=== PATIENT | female | born 1965 | race Caucasian/White ===

== ENCOUNTER 2018-08-06 11:04 | Emergency (ER) | payer BC ==
--- NOTE | 2018-08-06 12:16 | ERPHSYRPT ---
- History of Present Illness Time Seen by Provider: 08/06/18 12:05 Historian: patient, family Exam Limitations: no limitations (or fever) Patient Subjective Stated Complaint: Pt states "I think I have the stomach bug. I cannot keep anything down and my stomach has been cramping on and off for the past 3 days." Triage Nursing Assessment: Pt alert and oriented X 3, skin pwd. PT ambulates with an upright steady gait, able to speak in clear full sentences. PT in no apparent respiratory distress. Physician History: The patient is a 53-year-old female with her complaining that she has a "stomach bug" for the past 3 days. She has not eaten for 3 or 4 days. She tries to drink she either gets cramping of her stomach, vomiting, or diarrhea. She denies fever or chills. She is lightheaded when she stands up. She has not been able to take her prescription medicines. Her past medical history significant for HTN, cholecystectomy, and hysterectomy. Timing/Duration: day(s) (4), gradual onset, worse Activities at Onset: none Quality: cramping Abdominal Pain Onset Location: epigastric Pain Radiation: no radiation Severity of Pain-Max: moderate Severity of Pain-Current: moderate Modifying Factors: Improves With: vomiting Associated Symptoms: diarrhea, nausea, vomiting Previous symptoms: no prior history Allergies/Adverse Reactions: levofloxacin [From Levaquin] Allergy (Mild, Verified 03/13/16 15:48) Stomach Pain Home Medications: Estradiol 1 mg [Estrace 1 mg] 0 mg PO DAILY 03/13/16 [History] Losartan Potassium 100 mg PO DAILY 03/13/16 [History] Nebivolol HCl [Bystolic] 10 mg PO HS 03/13/16 [History] Hx Tetanus, Diphtheria Vaccination/Date Given: Yes Hx Influenza Vaccination/Date Given: Yes Hx Pneumococcal Vaccination/Date Given: No Immunizations Up to Date: Yes - Review of Systems Constitutional: No Fever, No Chills Eyes: No Symptoms Ears, Nose, & Throat: No Symptoms Respiratory: No Cough, No Dyspnea Cardiac: No Chest Pain, No Edema, No Syncope Abdominal/Gastrointestinal: Abdominal Pain, Nausea, Vomiting, Diarrhea Genitourinary Symptoms: No Dysuria Musculoskeletal: No Back Pain, No Neck Pain Skin: No Rash Neurological: Dizziness Psychological: No Symptoms Endocrine: No Symptoms Hematologic/Lymphatic: No Symptoms Immunological/Allergic: No Symptoms All Other Systems: Reviewed and Negative - Past Medical History Pertinent Past Medical History: Yes Neurological History: No Pertinent History ENT History: No Pertinent History Cardiac History: Hypertension Respiratory History: No Pertinent History Endocrine Medical History: No Pertinent History Musculoskeletal History: No Pertinent History GI Medical History: Gallbladder Disease History: Other Psycho-Social History: No Pertinent History Female Reproductive Disorders: Abnormal Uterine Bleeding - Past Surgical History Past Surgical History: Yes Neuro Surgical History: No Pertinent History Cardiac: No Pertinent History Respiratory: No Pertinent History Gastrointestinal: Cholecystectomy Genitourinary: Other Musculoskeletal: No Pertinent History Female Surgical History: Hysterectomy Other Surgical History: kidney stone removed - Social History Smoking Status: Never smoker Exposure to second hand smoke: No Drug Use: none Patient Lives Alone: No - Female History Hx Last Menstrual Period: hysterectomy Hx Now: No - Nursing Vital Signs Nursing Vital Signs: Initial Vital Signs Temperature 97.7 F 08/06/18 11:10 Pulse Rate 102 H 08/06/18 11:10 Respiratory Rate 18 08/06/18 11:10 Blood Pressure 183/89 08/06/18 11:10 O2 Sat by Pulse Oximetry 99 08/06/18 11:10 Pain Scale Pain Intensity 5 - Physical Exam General Appearance: mild distress Eye Exam: PERRL/EOMI, eyes nml inspection Ears, Nose, Throat Exam: normal ENT inspection, pharynx normal, moist mucous membranes Neck Exam: normal inspection, non-tender, supple, full range of motion Respiratory Exam: normal breath sounds, lungs clear, No respiratory distress Cardiovascular Exam: regular rate/rhythm, normal heart sounds Gastrointestinal/Abdomen Exam: tenderness (epigastric) Pelvic Exam: not done Rectal Exam: not done Back Exam: normal inspection, normal range of motion, No CVA tenderness, No vertebral tenderness Extremity Exam: normal inspection, normal range of motion, pelvis stable Neurologic Exam: alert, oriented x 3, cooperative, normal mood/affect, nml cerebellar function, sensation nml, No motor deficits Skin Exam: normal color, warm, dry SpO2 Interpretation: normal SpO2: 99 Oxygen Delivery: Room Air - CT Exams Abdomen/Pelvis CT Interpretation: Tele-radiologist Report (per Dr Frausto), Other (distended small bowel loops, ileal bowel wall thickening; stranding; favoring enteritis) Ordered Tests: Active Orders 24 hr Category Date Time Status IV Insertion STAT Care 08/06/18 12:18 Active ABDOMEN AND PELVIS W/0 CONTRAS [CT] Stat Exams 08/06/18 12:18 Completed CBC W DIFF Stat Lab 08/06/18 12:15 Completed CMP Stat Lab 08/06/18 12:15 Received LIPASE Stat Lab 08/06/18 12:15 Received Lactic Acid Stat Lab 08/06/18 12:15 Completed Lactic Acid Stat Lab 08/06/18 15:06 Completed Medication Summary Discontinued Medications Generic Name Dose Route Start Last Admin Trade Name Deborah PRN Reason Stop Dose Admin Famotidine 20 mg 08/06/18 12:18 08/06/18 12:35 Pepcid 20 Mg Vial IV 08/06/18 12:19 20 mg STAT ONE Administration Famotidine Confirm 08/06/18 12:23 Pepcid 20 Mg Vial Administered 08/06/18 12:24 Dose 20 mg IV .STK-MED ONE Sodium Chloride 1,000 mls @ 999 mls/hr 08/06/18 12:18 08/06/18 13:42 Sodium Chloride 0.9% 1000 Ml IV 08/06/18 13:18 Infused .Q1H1M STA Infusion Sodium Chloride Confirm 08/06/18 12:23 Sodium Chloride 0.9% 1000 Ml Administered 08/06/18 12:24 Dose 1,000 mls @ ud .ROUTE .STK-MED ONE Sodium Chloride 1,000 mls @ 999 mls/hr 08/06/18 14:39 08/06/18 14:56 Sodium Chloride 0.9% 1000 Ml IV 08/06/18 15:39 999 mls/hr .Q1H1M STA Administration Sodium Chloride Confirm 08/06/18 14:56 Sodium Chloride 0.9% 1000 Ml Administered 08/06/18 14:57 Dose 1,000 mls @ ud .ROUTE .STK-MED ONE Promethazine HCl 25 mg 08/06/18 12:19 08/06/18 12:34 Phenergan 25 Mg Inj IV 08/06/18 12:20 25 mg STAT ONE Administration Promethazine HCl Confirm 08/06/18 12:23 Phenergan 25 Mg Inj Administered 08/06/18 12:24 Dose 25 mg .ROUTE .STK-MED ONE Lab/Rad Data: Laboratory Result Diagrams 08/06/18 12:15 Laboratory Results 08/06/18 08/06/18 08/06/18 Range/Units 15:06 12:15 12:15 WBC 13.1 H (4.0-10.5) K/mm3 RBC 5.30 (4.1-5.4) M/mm3 Hgb 16.4 H (12.0-16.0) gm/dl Hct 48.9 H (35-47) % MCV 92.3 (78-100) fl MCH 30.9 (26-32) pg MCHC 33.5 (32-36) g/dl RDW 12.9 (11.5-14.0) % Plt Count 389 (150-450) K/mm3 MPV 10.2 H (6-9.5) fl Gran % 81.0 H (36.0-66.0) % Eos # (Auto) 0.07 (0-0.5) Absolute Lymphs (auto) 1.61 (1.0-4.6) Absolute Monos (auto) 0.78 (0.0-1.3) Lymphocytes % 12.3 L (24.0-44.0) % Monocytes % 5.9 (0.0-12.0) % Eosinophils % 0.5 (0.00-5.0) % Basophils % 0.3 (0.0-0.4) % Absolute Granulocytes 10.62 H (1.4-6.9) Basophils # 0.04 (0-0.4) Lactic Acid 1.2 2.2 H (0.4-2.0) - Progress Progress: improved Progress Note: 08/06/18 15:20 The patient was given famotidine 20 mg, Phenergan 25 mg, and 1 L of normal saline by IV. The patient was feeling better for a period of time. The nurse states that the patient after feeling better, started to complain of stomach cramping again. I went in to see the patient. She has not been vomiting. Her stomach is still cramping. I explained to her about the results of the CT scan of her abdomen and pelvis. I explained that it showed enteritis or something that has been going around with several people in the community. I also explained to her that one of our laboratory machines had malfunctioned and the needed to send some of her blood work to [facility] for analysis before we could determine what else needed to be done. Her quickly interjected that could we give her more fluids. I responded that it would not hurt to give her 1 more liter while we wait. The nurse has been back into check on the patient and she informs me that the is upset with the delay in laboratory results. He stated that he did not want to come here anymore because of the delay. He stated he would go to [facility] [place]. I will go back and talk with him in a few minutes. 08/06/18 15:53 After our last from [facility] returned, I and Shari Landaverde talk with the patient and her about all of the findings. I informed her that the findings including the CT scan of her abdomen and pelvis pointed towards her small bowel enteritis. We went over all of the laboratories in detail. The patient's was worried about the patient's blood pressure. Her blood pressure was 170s over 90s. He wanted us to give her medicine to lower her blood pressure. I discussed that with the patient. She has not taken her 2 different blood pressure medicines for the past 2 days because of her stomach illness. She declined any blood pressure medicine here in the ER and wanted to have them at home as usual. I once again asked her if he had any concerns. And he said he would not say anything to himself. I was giving the patient extra pain medicine before she leaves. Counseled pt/family regarding: lab results, diagnosis, need for follow-up, rad results - Departure Time of Disposition: 15:58 Departure Disposition: Home Clinical Impression: Gastroenteritis Condition: Stable Critical Care Time: No Referrals: PRIYA ASHTON MD [Primary Care Provider] - Additional Instructions: You have nausea, vomiting, and diarrhea (gastroenteritis). You were given famotidine 20 mg, Phenergan 25 mg, morphine 4 mg, and 2 L of fluids by IV in the ER. I discussed with you all of the laboratory findings and the imaging studies. Your blood pressure was mildly elevated today because you have not taken your blood pressure medicine for the past 2 days. You declined blood pressure medicine in the ER. You wanted to take your own blood pressure medicine tonight when you get home. Take Zofran 4 mg ODT every 6 hours as needed for nausea. Take omeprazole 1 tablet daily for the next 7 days. Follow- up with Dr. Ashton on Thursday. Prescriptions: Ondansetron ODT 4 MG [Zofran Odt 4 mg] 1 tab PO Q6H PRN PRN #10 tab.rapdis PRN Reason: Nausea/Vomiting Omeprazole 20 mg PO DAILY #7 capsule.
[2018-08-06] MEDS ORDERED: Phenergan 25 MG INJ ONE (12:23)
[2018-08-06] MEDS ORDERED: Pepcid 20 MG VIAL IV ONE (12:23)
[2018-08-06] MEDS ORDERED: Sodium Chloride 0.9% 1000 ML 1,000 ML ONE ×2 (12:23→14:56)
[2018-08-06] MEDS: Phenergan 25 MG INJ IV ONE (12:34)
[2018-08-06] MEDS: Pepcid 20 MG VIAL IV ONE (12:35)
[2018-08-06] MEDS: Sodium Chloride 0.9% 1000 ML 1,000 ML IV STA ×2 (12:35→14:56)
[2018-08-06 12:50] LABS: BASOPHIL % 0.3 % (0.0-0.4); Basophil (Absolute #) 0.04 (0-0.4); Eosinophil % 0.5 % (0.00-5.0); Eosinophil (Absolute #) 0.07 (0-0.5); Hematocrit 48.9 % (35-47); Hemoglobin 16.4 gm/dl (12.0-16.0); Lymphocyte (Absolute #) 1.61 (1.0-4.6); Lymphocytes % 12.3 % (24.0-44.0); Mean Cell Volume 92.3 fl (78-100); Mean Corpuscular Hemoglobin 30.9 pg (26-32); Mean Corpuscular Hgb Concent. 33.5 g/dl (32-36); Mean Platelet Volume 10.2 fl (6-9.5); Monocyte (Absolute #) 0.78 (0.0-1.3); Monocytes % 5.9 % (0.0-12.0); Platelet Count 389 K/mm3 (150-450); Red Cell Distribution Width 12.9 % (11.5-14.0); White Blood Count 13.1 K/mm3 (4.0-10.5)
[2018-08-06 13:09] LABS: Lactic Acid 2.2 (0.4-2.0)
--- NOTE | 2018-08-06 13:21 | XRAY ---
Indication: Abdomen pain. Flu symptoms. Multiple contiguous axial images obtained through the abdomen and pelvis without contrast as ordered. Comparison: None Lung bases demonstrates bibasilar atelectasis/scarring. No infiltrate or effusion. Heart is not enlarged. Small hiatal hernia. Noncontrasted stomach and bowel loops appear nonobstructed. Several midabdomen small bowel loops are mildly fluid distended with fluid leveling. Distal ileum demonstrates circumferential wall thickening and stranding favoring enteritis. Small pelvic and perihepatic free fluid presumed related. No walled off fluid collection or free air. Normal ileocecal junction and normal appendix. Scattered descending and sigmoid diverticulosis. Previous cholecystectomy and hysterectomy. Remaining liver, pancreas, spleen, adrenal glands, kidneys, ureters, and bladder appear unremarkable for noncontrast exam. Minimal aortoiliac calcifications without AAA. Osseous structures intact with mild degenerative changes throughout the spine. No ventral or inguinal hernias. Impression: 1. Mild fluid distended small bowel loops with ileal bowel wall thickening and stranding favoring enteritis. Small perihepatic and pelvic free fluid presumed reactive. 2. Incidental colonic diverticulosis and small hiatal hernia. CT DI 23.52
[2018-08-06] MEDS ORDERED: MORPHINE SULFATE 4 MG INJ ONE (16:05)
[2018-08-06] MEDS: MORPHINE SULFATE 4 MG INJ IV ONE (16:06)
[2018-08-06 16:09] VITALS: BP 162/94; PULSE 76; O2SAT 100
== END 2018-08-06 16:23 | disposition home or self-care (01) ==
LOC: ED 11:04
DX: K52.9 Noninfective gastroenteritis and colitis, unspecified (principal); Z79.899 Other long term (current) drug therapy; I10 Essential (primary) hypertension; R10.13 Epigastric pain
CPT/HCPCS: 36000; 36415; 74176; 80053; 83605; 83690; 85025; 96360; 96361; 96374; 96375; 99284; J2270; J2550